=== PATIENT | male | born 1945 | race Caucasian/White ===

== ENCOUNTER 2017-09-09 12:17 | Emergency (ER) | payer MEDICARE, OTHER ==
[2017-09-09 12:36] VITALS: BP 106/49
[2017-09-09] MEDS ORDERED: Acetaminophen TAB* 325 MG PO ONE (12:43)
--- NOTE | 2017-09-09 12:55 | UC ---
Complaint Male HPI - HPI Summary HPI Summary: 72 yo male with 1-2 day hx of f/c, weakness and anorexia Has had increased frequency and urgency of urination as well as incontinence slight CONWAY no reported confusion no cough or runny nose no mylagias no vomiting some loose stool - History of Current Complaint Chief Complaint: UCGeneralIllness Stated Complaint: FEVER FATIGUE Time Seen by Provider: 09/09/17 12:28 Hx Obtained From: Patient Onset/Duration: Gradual Onset, Lasting Days Timing: Constant Severity Initially: Moderate Severity Currently: Moderate Pain Intensity: 7 Pain Scale Used: 0-10 Numeric Associated Signs And Symptoms: Positive: Diaphoresis, Fever, Appetite - decreased, Nausea. Negative: Dysuria, Blood in Stool, Rectal Pain - Allergies/Home Medications Allergies/Adverse Reactions: Allergies Allergy/AdvReac Type Severity Reaction Status Date / Time No Known Allergies Allergy Verified 02/26/16 09:16 PMH/Surg Hx/FS Hx/Imm Hx Previously Healthy: Yes Other GI/ History: BPH - Surgical History Surgical History: Yes Surgery Procedure, Year, and Place: Appendectomy, ~1956, [place] - Family History Known Family History: Positive: Cardiac Disease, Hypertension, Diabetes - Social History Alcohol Use: Occasionally Substance Use Type: None Smoking Status (MU): Never Smoked Tobacco Type: Cigarettes Amount Used/How Often: 3 PPD Length of Time of Smoking/Using Tobacco: 30 Years Have You Smoked in the Last Year: No When Did the Patient Quit Smoking/Using Tobacco: 1990 - Immunization History Most Recent Influenza Vaccination: December 2015 Review of Systems Constitutional: Fever, Chills, Fatigue Skin: Negative Eyes: Negative ENT: Negative Respiratory: Negative Cardiovascular: Negative Gastrointestinal: Negative Genitourinary: Frequency, Urgency Motor: Negative Neurovascular: Negative Musculoskeletal: Negative Neurological: Negative Psychological: Negative Is Patient Immunocompromised?: No All Other Systems Reviewed And Are Negative: Yes Physical Exam Triage Information Reviewed: Yes Appearance: No Pain Distress, Ill-Appearing Vital Signs: Initial Vital Signs Temp 100.8 F 09/09/17 12:31 Pulse 123 09/09/17 12:31 Resp 19 09/09/17 12:31 BP 106/49 09/09/17 12:31 Pulse Ox 96 09/09/17 12:31 Eyes: Positive: Conjunctiva Clear ENT: Positive: Hearing grossly normal. Negative: Nasal congestion, Nasal drainage, Muffled voice, Hoarse voice Neck: Positive: Supple, No Lymphadenopathy Respiratory: Positive: Lungs clear, Normal breath sounds, No respiratory distress, No accessory muscle use Cardiovascular: Positive: RRR, No Murmur, Tachycardia Abdomen Description: Positive: Nontender. Negative: CVA Tenderness (R), CVA Tenderness (L) Bowel Sounds: Positive: Present Musculoskeletal: Positive: ROM Intact, No Edema Neurological: Positive: Alert Psychological Exam: Normal Skin Exam: Normal Complaint Male Course/Dx - Course Course Of Treatment: discussed need for higher level of care for him. his daughters drove him in and wish to drive him to ER. I spoke to Frances Briceno NP at [facility]. accepts patient - Differential Dx/Diagnosis Provider Diagnoses: Febrile illness Discharge - Sign-Out/Discharge Documenting (check all that apply): Discharge/Admit/Transfer - Discharge Plan Condition: Stable Disposition: TRANS HIGHER LVL OF CARE FAC Referrals: Woody Patel MD [Primary Care Provider] - Additional Instructions: Please go to [facility] emergency room I spoke to Frances Duke NP and they are expecting you - Billing Disposition and Condition Condition: STABLE Disposition: Trans Higher Lvl of Care Fac
== END 2017-09-09 12:54 | disposition short-term general hospital (02) ==
LOC: UCCORT 12:17
DX: R50.9 Fever, unspecified (principal)
CPT/HCPCS: 99212; A9270-GY; G0463

== ENCOUNTER 2018-01-15 09:29 | Emergency (ER) | payer MEDICARE, OTHER ==
[2018-01-15 09:51] VITALS: BP 125/63
--- NOTE | 2018-01-15 10:06 | UC ---
Throat Pain/Nasal Jacob HPI - HPI Summary HPI Summary: 72 yo M, no significant PMH, p/w intermittent sore throat for 1.5 months. Symptoms are bothersome but not severe. Improves w throat spray, then returns several days later. No associated odynophagia or dysphagia. No voice choice or decreased appetite. No fever. Taking guaifenesin w dextromethorphan w/o significant relief. Has mild rare cough, does express phlegm. Presents today b/ c advised to do so by child. Meds reviewed, takes flomax only - History of Current Complaint Chief Complaint: UCRespiratory Stated Complaint: SORE THROAT,CONGESTION Time Seen by Provider: 01/15/18 09:45 Onset/Duration: Lasting Weeks Pain Intensity: 0 Cough: Productive - Allergies/Home Medications Allergies/Adverse Reactions: Allergies Allergy/AdvReac Type Severity Reaction Status Date / Time No Known Allergies Allergy Verified 01/15/18 09:44 PMH/Surg Hx/FS Hx/Imm Hx Previously Healthy: Yes - Surgical History Surgical History: Yes Surgery Procedure, Year, and Place: Appendectomy, ~1956, [place] - Family History Known Family History: Positive: Cardiac Disease, Hypertension, Diabetes - Social History Alcohol Use: Occasionally Substance Use Type: None Smoking Status (MU): Former Smoker Type: Cigarettes Amount Used/How Often: 3 PPD Length of Time of Smoking/Using Tobacco: 30 Years Have You Smoked in the Last Year: No When Did the Patient Quit Smoking/Using Tobacco: 1990 - Immunization History Most Recent Influenza Vaccination: December 2015 Review of Systems Skin: Negative Eyes: Negative Respiratory: Cough Cardiovascular: Negative Gastrointestinal: Negative All Other Systems Reviewed And Are Negative: Yes Physical Exam Triage Information Reviewed: Yes Appearance: Well-Appearing, No Pain Distress, Well-Nourished Vital Signs: Initial Vital Signs Temp 97.5 F 01/15/18 09:45 Pulse 72 01/15/18 09:45 Resp 16 01/15/18 09:45 BP 125/63 01/15/18 09:45 Pulse Ox 98 01/15/18 09:45 Vital Signs Reviewed: Yes Eyes: Positive: Conjunctiva Clear ENT: Positive: Uvula midline, Other - cobble stoning of posterior pharynx present. Negative: Pharyngeal erythema, Nasal congestion, Nasal drainage, Tonsillar swelling, Tonsillar exudate, Trismus, Muffled voice, Hoarse voice Respiratory Exam: Normal Respiratory: Positive: No respiratory distress, No accessory muscle use Psychological Exam: Normal Skin Exam: Normal Throat Pain/Nasal Course/Dx - Differential Dx/Diagnosis Provider Diagnoses: post-nasal drip Discharge - Sign-Out/Discharge Documenting (check all that apply): Patient Departure All imaging exams completed and their final reports reviewed: No Studies - Discharge Plan Condition: Stable Disposition: HOME Prescriptions: Pseudoephedrine HCL ER TAB* [Sudafed 12 Hour*] 120 mg PO BID 7 Days #14 tab.er Patient Education Materials: Postnasal Drip (DC) Referrals: Woody Patel MD [Primary Care Provider] - - Billing Disposition and Condition Condition: STABLE Disposition: Home
== END 2018-01-15 10:48 | disposition home or self-care (01) ==
LOC: UCCORT 09:29
DX: R09.82 Postnasal drip (principal); Z87.891 Personal history of nicotine dependence
CPT/HCPCS: 87651; 99212; G0463